=== PATIENT | female | born 1985 | race American Indian/Alaskan Native ===

== ENCOUNTER 2017-02-16 19:47 | Emergency (ER) | payer SELFPAY ==
[2017-02-16 21:02] LABS: Bacteria,Urine 1+ /HPF (Negative); Bilirubin,Urine NEG (Negative); Blood,Urine NEG (Negative); Ketones,Urine NEG (Negative); Leukocyte Esterase,Urine NEG (Negative); Mucus,Urine FEW /HPF; Nitrite,Urine NEG (Negative); Protein,Urine <15 mg/dL mg/dL (Negative); Urobilinogen,Urine < 2.0 mg/dL (<2.0)
[2017-02-16 21:26] LABS: Hematocrit 35.6 % (30.3-42.9); Hemoglobin 11.8 gm/dl (10.1-14.3); Mean Corpuscular HGB Conc 33 % (30-34); Mean Corpuscular Hemoglobin 29 pg (28-32); Mean Corpuscular Volume 87 fl (79-97); Platelet Count 217 K/mm3 (140-440); Red Blood Count 4.07 M/mm3 (3.65-5.03); Red Cell Distribution Width 13.2 % (13.2-15.2); White Blood Count 5.3 K/mm3 (4.5-11.0)
[2017-02-16 21:47] LABS: Anion Gap 15 mmol/L; BUN/Creatinine Ratio 15.71; Blood Urea Nitrogen 11 mg/dL (7-17); Calcium 8.9 mg/dL (8.4-10.2); Carbon Dioxide 24 mmol/L (22-30); Chloride 99.6 mmol/L (98-107); Glucose 89 mg/dL (65-100); Potassium 3.9 mmol/L (3.6-5.0); Sodium 135 mmol/L (137-145)
--- NOTE | 2017-02-16 22:58 | Ultrasound Report ---
FINAL REPORT PROCEDURE: Transabdominal pelvic ultrasound. TECHNIQUE: Real-time transabdominal sonography in multiple planes of pelvis was performed with image documentation. This examination was performed without Doppler. Vascular abnormalities, including ovarian torsion, will not be detectable without Doppler evaluation. CPT 18570 HISTORY: Pelvic pain, . COMPARISON: No prior studies are available for comparison. FINDINGS: The uterus measures 10.0 centimeters x 5.4 centimeters x 6.4 centimeters. The myometrium appears uniform. There is an intrauterine gestational sac. A yolk sac is visible. A pole is not clearly evident on this transabdominal study. Neither ovary is identified. IMPRESSION: Early intrauterine .
--- NOTE | 2017-02-16 23:02 | Ultrasound Report ---
FINAL REPORT PROCEDURE: Transvaginal obstetrical ultrasound. TECHNIQUE: Real-time transvaginal sonography of the uterus, placenta, amniotic fluid, adnexa, and fetus was performed with image documentation. Measurements were obtained to determine age/size. M-mode Doppler was used to document heartbeat. CPT 71430 HISTORY: Pelvic pain, . COMPARISON: No prior studies are available for comparison. FINDINGS: The uterus appears normal. The myometrium is uniform. There is an intrauterine gestational sac. There is a small pole and yolk sac visible. Cardiac activity is documented at 104 beats per minute. The crown-rump length measurement is 5.9 millimeters. This indicates a menstrual age of 6 weeks 3 days. The estimated date of confinement is 10/09/2017. Both ovaries appear normal in size. There is a cyst in the right ovary measuring 1.5 centimeters. There is a small amount of free fluid adjacent to the right ovary. IMPRESSION: Viable intrauterine with a menstrual age of 6 weeks 3 days.
--- NOTE | 2017-02-17 02:30 | Emergency Department Report ---
ED Female HPI - General Chief complaint: Urogenital-Female Stated complaint: ABD PAIN X 3 DAYS Time Seen by Provider: 02/17/17 02:29 Source: patient, family Mode of arrival: Ambulatory Limitations: No Limitations - History of Present Illness Initial comments: Patient here report that she is having pelvic pain 3 days. Patient and said that she had a confirmed at a clinic which this patient was 6 weeks she said she had STD testing done and an pelvic exam done 2 days ago and they were negative. Patient denies any vaginal bleeding or discharge. Denies any nausea vomiting or diarrhea. Patient said that they did not do ultrasound. She said her pain is 8 out of 10 and it comes and goes and she is not having any at present but wanted stare it feels crampy. Denies any medical problems. Denies any urinary burning frequency or urgency. Patient states that she does not have [facility] and she will be looking for one. She is not taking vitamins. Denies any back pain. MD Complaint: pelvic pain ( at 6 weeks per patient) Onset/Timin -: days(s) Location: suprapubic Radiation: non-radiating Severity: severe Severity scale (0 -10): 8 Quality: cramping Consistency: intermittent Improves with: none Worsens with: none Are you Now?: Yes (6 weeks) Last Menstrual Period: 01/07/17 EDC: 10/14/17 Associated Symptoms: abdominal pain. denies: vaginal discharge, vaginal bleeding, nausea/vomiting, fever/chills, headaches, loss of appetite, dysuria, hematuria, rash, seizure, shortness of breath, syncope, weakness - Related Data Sexually active: Yes Previous Rx's Medication Instructions Recorded Last Taken Type Acetaminophen/Codeine [Tylenol #3] 1 tab PO Q6H PRN #15 tab 07/19/15 Unknown Rx Cyclobenzaprine HCl [Flexeril 5 MG 5 mg PO Q8HR PRN #15 tablet 07/19/15 Unknown Rx TAB] Ibuprofen [Motrin 800 MG tab] 800 mg PO Q8HR PRN #30 tablet 07/19/15 Unknown Rx traMADol [Ultram] 50 mg PO Q6HR PRN #14 tablet 01/14/16 Unknown Rx Vit No.130/Iron/FA 1 each PO QAM #30 tablet 08/27/17 Unknown Rx [ Tablet] Allergies Allergy/AdvReac Type Severity Reaction Status Date / Time No Known Allergies Allergy Verified 07/18/15 20:10 ED Review of Systems ROS: Stated complaint: ABD PAIN X 3 DAYS Other details as noted in HPI Comment: All other systems reviewed and negative Constitutional: denies: chills, fever Respiratory: no symptoms reported Cardiovascular: denies: chest pain, palpitations, edema, syncope Gastrointestinal: abdominal pain. denies: nausea, vomiting, diarrhea, constipation, hematemesis, melena, hematochezia Genitourinary: denies: urgency, dysuria, frequency, hematuria, discharge Musculoskeletal: denies: back pain, joint swelling, arthralgia, myalgia Skin: denies: rash Neurological: denies: headache, weakness, numbness, paresthesias, confusion, abnormal gait, vertigo ED Past Medical Hx - Past Medical History Previous Medical History?: No - Surgical History Past Surgical History?: No - Family History Family history: no significant - Social History Smoking Status: Never Smoker Substance Use Type: None - Medications Home Medications: Home Medications Medication Instructions Recorded Confirmed Last Taken Type Acetaminophen/Codeine [Tylenol #3] 1 tab PO Q6H PRN #15 tab 07/19/15 Unknown Rx Cyclobenzaprine HCl [Flexeril 5 MG 5 mg PO Q8HR PRN #15 tablet 07/19/15 Unknown Rx TAB] Ibuprofen [Motrin 800 MG tab] 800 mg PO Q8HR PRN #30 tablet 07/19/15 Unknown Rx traMADol [Ultram] 50 mg PO Q6HR PRN #14 tablet 01/14/16 Unknown Rx Vit No.130/Iron/FA 1 each PO QAM #30 tablet 02/17/17 Unknown Rx [ Tablet] ED Physical Exam - General Limitations: No Limitations General appearance: alert, in no apparent distress - Head Head exam: Present: atraumatic, normocephalic, normal inspection - Eye Eye exam: Present: normal appearance, PERRL, EOMI Pupils: Present: normal accommodation - ENT ENT exam: Present: normal exam, normal orophraynx, mucous membranes moist, TM's normal bilaterally, normal external ear exam - Neck Neck exam: Present: normal inspection, full ROM. Absent: tenderness, meningismus, lymphadenopathy - Respiratory Respiratory exam: Present: normal lung sounds bilaterally. Absent: respiratory distress, chest wall tenderness - Cardiovascular Cardiovascular Exam: Present: regular rate, normal rhythm, normal heart sounds - GI/Abdominal GI/Abdominal exam: Present: soft, normal bowel sounds. Absent: distended, tenderness, guarding, rebound, rigid - External exam: Present: normal external exam. Absent: erythema, swelling, lesions, lacerations, ecchymosis, bleeding Speculum exam: Present: normal speculum exam. Absent: erythema, vaginal discharge, cervical discharge, vaginal bleeding, foreign body, tissue, laceration Bi-manual exam: Present: normal bi-manual exam. Absent: cervical motion tendernes, adnexal tenderness, adnexal mass, uterine enlargement, uterine tenderness - Extremities Exam Extremities exam: Present: normal inspection, full ROM, normal capillary refill. Absent: tenderness, pedal edema, joint swelling, calf tenderness - Back Exam Back exam: Present: normal inspection, full ROM. Absent: tenderness, CVA tenderness (R), CVA tenderness (L), muscle spasm, paraspinal tenderness, vertebral tenderness, rash noted - Neurological Exam Neurological exam: Present: alert, oriented X3, normal gait, reflexes normal. Absent: motor sensory deficit - Psychiatric Psychiatric exam: Present: normal affect, normal mood - Skin Skin exam: Present: warm, dry, intact, normal color. Absent: rash ED Course Vital Signs 02/16/17 02/17/17 20:31 00:02 Temperature 98.6 F 98.6 F Pulse Rate 78 74 Respiratory 18 20 Rate Blood Pressure 114/62 116/74 O2 Sat by Pulse 100 100 Oximetry - Reevaluation(s) Reevaluation #1: 02/17/17 04:13 She is stable throughout ED stay ED Medical Decision Making - Lab Data Result diagrams: 02/16/17 21:01 02/16/17 21:01 Lab Results 02/16/17 02/16/17 02/16/17 Range/Units 20:42 21:01 21:01 WBC 5.3 (4.5-11.0) K/mm3 RBC 4.07 (3.65-5.03) M/mm3 Hgb 11.8 (10.1-14.3) gm/dl Hct 35.6 (30.3-42.9) % MCV 87 (79-97) fl MCH 29 (28-32) pg MCHC 33 (30-34) % RDW 13.2 (13.2-15.2) % Plt Count 217 (140-440) K/mm3 Sodium 135 L (137-145) mmol/L Potassium 3.9 (3.6-5.0) mmol/L Chloride 99.6 (98-107) mmol/L Carbon Dioxide 24 (22-30) mmol/L Anion Gap 15 mmol/L BUN 11 (7-17) mg/dL Creatinine 0.7 (0.7-1.2) mg/dL Estimated GFR > 60 ml/min BUN/Creatinine Ratio 15.71 % Glucose 89 (65-100) mg/dL Calcium 8.9 (8.4-10.2) mg/dL HCG, Quant (0-4) mIU/mL Urine Color Yellow (Yellow) Urine Turbidity Slightly-cloudy (Clear) Urine pH 6.0 (5.0-7.0) Ur Specific [place] 1.006 (1.003-1.030) Urine Protein <15 mg/dl (Negative) mg/dL Urine Glucose (UA) Neg (Negative) mg/dL Urine Ketones Neg (Negative) mg/dL Urine Blood Neg (Negative) Urine Nitrite Neg (Negative) Urine Bilirubin Neg (Negative) Urine Urobilinogen < 2.0 (<2.0) mg/dL Ur Leukocyte Esterase Neg (Negative) Urine WBC (Auto) 2.0 (0.0-6.0) /HPF Urine RBC (Auto) 3.0 (0.0-6.0) /HPF U Epithel Cells (Auto) 22.0 H (0-13.0) /HPF Urine Bacteria (Auto) 1+ (Negative) /HPF Urine Mucus Few /HPF Blood Type 02/16/17 02/16/17 Range/Units 21:01 21:01 WBC (4.5-11.0) K/mm3 RBC (3.65-5.03) M/mm3 Hgb (10.1-14.3) gm/dl Hct (30.3-42.9) % MCV (79-97) fl MCH (28-32) pg MCHC (30-34) % RDW (13.2-15.2) % Plt Count (140-440) K/mm3 Sodium (137-145) mmol/L Potassium (3.6-5.0) mmol/L Chloride (98-107) mmol/L Carbon Dioxide (22-30) mmol/L Anion Gap mmol/L BUN (7-17) mg/dL Creatinine (0.7-1.2) mg/dL Estimated GFR ml/min BUN/Creatinine Ratio % Glucose (65-100) mg/dL Calcium (8.4-10.2) mg/dL HCG, Quant 41097 H (0-4) mIU/mL Urine Color (Yellow) Urine Turbidity (Clear) Urine pH (5.0-7.0) Ur Specific [place] (1.003-1.030) Urine Protein (Negative) mg/dL Urine Glucose (UA) (Negative) mg/dL Urine Ketones (Negative) mg/dL Urine Blood (Negative) Urine Nitrite (Negative) Urine Bilirubin (Negative) Urine Urobilinogen (<2.0) mg/dL Ur Leukocyte Esterase (Negative) Urine WBC (Auto) (0.0-6.0) /HPF Urine RBC (Auto) (0.0-6.0) /HPF U Epithel Cells (Auto) (0-13.0) /HPF Urine Bacteria (Auto) (Negative) /HPF Urine Mucus /HPF Blood Type O POSITIVE Urine culture sent - Radiology Data Radiology results: report reviewed Ultrasound of transvaginal OB revealed viable intrauterine with menstrual age of 6 weeks and 3 days. The estimated date of confinement is 10/09. The uterus appeared normal. The myometrium is uniform. There is an intrauterine gestational sac. There is a small pole and yolk sac visible. Cardiac activity is documented at 10 4 bpm. The crown rump length measures 5.9 mm. Transabdominal ultrasound also revealed early intrauterine . Both ovaries appear normal in size but there is a cyst on the right ovary - Medical Decision Making ED course:PThere to be checked because she says she is that was confirmed at a clinic where she had exam, test then and lab work done. She said they did not do ultrasound. She is here complaining of pelvic pain that is cramping in nature that comes and goes. Patient denies any vaginal bleeding or discharge. She had vaginal exam and STD testing done at clinic when they told her that she was . She does not have [employer] [facility] that she'll be looking for one. I discussed with her her ultrasound result and her lab work. Discussed the patient's that she is having pelvic pain this is considered a threatened miscarriage. She didn't eat urine negative but she has 1+ bacteria. Urine culture sent. I discussed the patient that she needs to start taking vitamin and to follow up with [facility]. I will refer her to my [facility] clinic who is on-call today. I also discussed with her if she starts having vaginal bleeding discharged, increase in abdominal pain, nausea and vomiting and her back pain to return to emergency room [facility]. Diagnostic/labs: The radiology section for ultrasound report. The lab section for urinalysis, CBC and BMP, quantitative hCG. Patient is O+ and urine culture is pending. No need for wet prep or CHL patient said it was already done at clinic. Assessment/plan 1. Threatened miscarriage ultrasound confirming IUP at 6 weeks and 3 days and positive heartbeat at 10 4 bpm 2. Pelvic pain in early 3. Right ovarian cyst Prescription given for vitamin and patient's given referral to my OB/ [facility] to call tomorrow to schedule appointment for first visit. Discharge home and I told her to rest, drink plenty of water and make sure that she follow up with [facility]. Critical care attestation.: If time is entered above; I have spent that time in minutes in the direct care of this critically ill patient, excluding procedure time. ED Disposition Clinical Impression: Pelvic pain during , Threatened miscarriage, Ovarian cyst, right Disposition: [id number] TO HOME OR SELFCARE Is pt being admited?: No Does the pt Need Aspirin: No Condition: Stable Instructions: Threatened Miscarriage (ED), Abdominal Pain (ED), Ovarian Cyst ( ED) Additional Instructions: Please rest for 72 hours increase fluid intake to at least 2-3 L of water per day Call [facility] office in the morning to schedule an appointment for first visit ultrasound showed that your baby is in uterus and ureter at 6 weeks and 3 days but this is still considered a threatened miscarriage due to pelvic pain. Start taking vitamins as prescribed Prescriptions: Vit No.130/Iron/FA [ Tablet] 1 each PO QAM #30 tablet Referrals: [facility] [Provider Group] - 02/18/17 Forms: Work/School Release Form(ED)
[2017-02-17 04:35] VITALS: BP 106/72
== END 2017-02-17 04:36 | disposition home or self-care (01) ==
LOC: ED 19:47
DX: O20.0 Threatened abortion (principal); O34.81 Maternal care for other abnormalities of pelvic organs, first trimester; Z3A.01 Less than 8 weeks gestation of pregnancy
CPT/HCPCS: 36415; 76801; 76817; 80048; 81001; 84702; 85027; 86900; 86901; 87086